=== PATIENT | male | born 2000 | race Hispanic/Latino ===

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

== ENCOUNTER 2019-04-02 12:38 | Day surgery (SDC) | payer SELFPAY ==
[~2019-04-02 12:38] MED LIST changes: +Dexamethasone 20 MG/5 ML VIAL ONE; -ISOVUE-370 76%-LOCM 1 ML ONE; +Lidocaine 1% PF 5 ML VIAL ONE; +Ondansetron PF 4 MG/2 ML Vial ONE; +PROPOFOL 200 MG/20 ML VIAL ONE; +Rocuronium Bromide 10 MG/ML (10ML VIAL) ONE; +Succinylcholine Chloride 20 MG/ML 10 ml SYRINGE FS ONE
[2019-04-02 13:30] LABS: #Lymphocytes 0.9 thou/uL (1.20-3.40); #Neutrophils 14.3 thou/uL (1.40-6.50); %Basophils 0.1 % (0.0-1.0); %Eosinophils 0.1 % (0.0-10.0); %Lymphocytes 5.5 % (28.0-48.0); %Monocytes 6.4 % (0.0-4.0); %Neutrophils 87.9 % (31.0-61.0); Hemoglobin 14.7 g/dL (14.0-18.0); Mean Corpuscular Volume 88.2 fL (78.0-98.0); Mean Platelet Volume 8.3 fL (7.4-10.4); Platelet Count 223 thou/uL (130-400); RBC Distribution Width 11.3 % (11.5-14.5); Red Blood Cell (RBC) Count 4.88 mill/uL (4.00-5.20); White Blood Cell (WBC) Count 16.3 thou/uL (4.8-10.8)
[2019-04-02 13:47] LABS: ALT (SGPT) 16 U/L (8-55); AST (SGOT) 16 U/L (10-45); Albumin 5.2 g/dL (3.5-5.0); Alkaline Phosphatase 95 U/L (50-130); Anion Gap 14 mmol/L (10-20); BUN (Urea Nitrogen) 15 mg/dL (8.4-21.0); Calc. Creatinine Clearance 0 mL/min (70-130); Calcium 10.4 mg/dL (7.8-10.44); Carbon Dioxide 24 mmol/L (22-29); Chloride 102 mmol/L (98-107); Estimated GFR-MDRD Greater than 90; Globulin 2.9 g/dL (2.4-3.5); Glucose 125 mg/dL (70-105); Lipase Less than 4 U/L (8-78); Potassium 3.6 mmol/L (3.5-5.1); Protein, Total 8.1 g/dL (6.0-8.3); Sodium 136 mmol/L (136-145)
--- NOTE | 2019-04-02 15:49 | CT ---
CT ABDOMEN AND PELVIS PERFORMED WITHOUT CONTRAST ENHANCEMENT: Date: 04/02/19 HISTORY: Abdominal pain, nausea and vomiting. FINDINGS: The lung bases are clear. The liver, spleen, pancreas, and gallbladder regions appear unremarkable, given the limitations of t he noncontrast study. Right and left adrenal glands, and right and left kidneys are normal in size. There is no significant periaortic or mesenteric adenopathy. CT of pelvis was performed without contrast enhancement. There is some moderate ileocolic chain lymph adenopathy and a couple of small appendicoliths are present, one near the base of the appendix. The a ppendix is distended with very minimal early periappendiceal inflammatory change. IMPRESSION: Findings that are suggestive of early appendicitis changes. POS: KIM
[2019-04-02] MEDS ORDERED: Ondansetron PF 4 MG/2 ML Vial ONE ×2 (15:51→15:52)
[2019-04-02] MEDS ORDERED: Ketorolac Tromethamine 30 MG/ML VIAL ONE (15:51)
[2019-04-02] MEDS ORDERED: Fentanyl 100 MCG/2 ML VIAL ONE ×3 (15:51→17:36)
[2019-04-02] MEDS ORDERED: Piperacillin/Tazobactam 4.5 GM VIAL ONE (15:52)
[2019-04-02] MEDS ORDERED: Bupivacaine 0.25% HCL 30 ML VIAL ONE (16:04)
[2019-04-02] MEDS ORDERED: Lidocaine 1% w/Epinephrine 1:100K 20 ML VIAL ONE (16:04)
--- NOTE | 2019-04-02 16:26 | HP ---
HISTORY: Mr. Harrell is a 18-year-old man, who presented to emergency department today. The patient is English-speaking only and interpretation was provided by his cousin at bedside. The patient reports insidious onset periumbilical abdominal pain, which started approximately at noon yesterday. Pain was described as sharp, occasionally crampy, rated at 7/10 at onset. The pain was associated with multiple episodes of nausea, but no emesis. The pain intensified after midnight and has settled in the right lower quadrant where it has persisted. Currently, he reports 8 to 9/10 right lower quadrant abdominal pain. He denies any fevers or chills. He denies any diarrhea. PAST MEDICAL HISTORY: Denies any previous medical problems. PAST SURGICAL HISTORY: Denies any previous surgeries. SOCIAL HISTORY: He is single, lives independently. He is employed in the construction business. He smokes marijuana occasionally and also admits to occasional intake of ethanol in moderate amounts. He denies any other illicit drug abuse or cigarette smoking. FAMILY HISTORY: Denies any family history of diabetes mellitus, hypertension, heart disease, or cancer. PREHOSPITALIZATION MEDICATIONS: None. ALLERGIES: THE PATIENT DENIES ANY KNOWN DRUG ALLERGIES. REVIEW OF SYSTEMS: Ten-point review of systems essentially unremarkable except as stated in past medical history and chief complaint. PHYSICAL EXAMINATION: GENERAL: Reveals a 18-year-old normally developed man, who is otherwise coherent, interactive, and appears stated age. The patient is alert and oriented x3, appears to be in moderate acute distress secondary to right lower quadrant abdominal pain. VITAL SIGNS: Today, include blood pressure 151/88, pulse is 100, respiratory rate is 16, and oxygen saturation is 100% on room air. HEENT: Reveals normocephalic and atraumatic. Pupils are equal, round, and reactive to light and accommodation. HEART: Reveals regular rate and rhythm. No murmurs or gallops auscultated. LUNGS: Clear to auscultation bilaterally. Breathing, regular and nonlabored. ABDOMEN: Soft with right lower quadrant tenderness at McBurney's. He has a positive Rovsing sign. Liver and spleen nonpalpable below the costal margin. NEUROLOGIC: Reveals no focal deficits present. LABORATORY FINDINGS: Today includes a CBC with 16,300 white blood cells, hemoglobin and hematocrit 14.7 and 43.1 respectively, and platelet count is 223,000. Metabolic profile; sodium 136, potassium is 3.6, chloride is 102, bicarb is 24, BUN 15, creatinine 0.73, and glucose 125. AST and ALT normal at 16 and 16 respectively. Serum lipase is less than 4. DIAGNOSTIC STUDIES: I have also reviewed the CT scan of the abdomen and pelvis, which is remarkable for dilated appendix with slight periappendiceal fat stranding. No pneumoperitoneum or significant free fluid is noted. IMPRESSION: Acute appendicitis. RECOMMENDATIONS AND PLAN: 1. Laparoscopic appendectomy. The above findings and plan discussed with the patient in the presence of his nurse as well as a family member, his cousin at bedside. 2. I have informed the patient of the risks and benefits of the proposed surgery to include, but not limited to bleeding, infection, injury to bowel or surrounding structures. 3. The patient indicates understanding information given. I have answered his questions. 4. The patient has granted consent for his admission and surgical intervention. Job ID: [id number]
[2019-04-02] MEDS ORDERED: SUGAMMADEX SODIUM 200 MG/2 ML VIAL ONE (17:19)
[2019-04-02] MEDS ORDERED: Meperidine HCl/PF 25 MG/ML VIAL ONE (17:46)
--- NOTE | 2019-04-02 22:52 | OP ---
DATE OF PROCEDURE: 04/02/2019 PREOPERATIVE DIAGNOSIS: Acute appendicitis. POSTOPERATIVE DIAGNOSIS: Acute appendicitis. OPERATION PERFORMED: Laparoscopic appendectomy. ANESTHESIA: General endotracheal. ESTIMATED BLOOD LOSS: 5 mL. FLUIDS GIVEN: 800 mL of crystalloids. COUNTS: Sponge and instrument counts were verified as correct x2. COMPLICATIONS: None apparent at the time of operation. INDICATIONS FOR OPERATION: This is a 18-year-old man, presented with insidious onset of periumbilical abdominal pain, which started yesterday noon and intensified and localized to the right lower quadrant over the last 18 hours. Clinical radiographic examination was consistent with acute appendicitis, for which the patient was brought to the operating room for appendectomy. Findings are consistent with suppurative, but nondilated appendix in the usual anatomic location. DESCRIPTION OF PROCEDURE: Informed consent was obtained from the patient who was brought to the operating room and placed in supine position. Following general anesthesia, abdomen was sterilely prepped and draped in usual fashion. The skin below the umbilicus was infiltrated with 0.25% Marcaine with epinephrine. A small curvilinear infraumbilical incision was made using 11 scalpel. Umbilical stalk grasped with Raaf and elevated. Veress needle was inserted through the incision and placed in peritoneal cavity through which the abdomen was insufflated with 3 L of CO2 gas. Intraabdominal pressure noted at 1 mmHg. Following abdominal insufflation, Veress needle was removed and a 5 mm trocar introduced using a Visiport under laparoscopy. Laparoscopy confirmed proper placement of the port, no injuries to underlying structures. Additional laparoscopy revealed the right lower quadrant partially obscured by omental adhesions. Under laparoscopy, two 5 mm suprapubic and left lower quadrant ports were placed after the overlying skin was infiltrated with 0.25% Marcaine with epinephrine and appropriate incision was made. The patient was placed in the Trendelenburg position, rotated to his left. I introduced a Prestige grasper through the left lower quadrant port using this to bluntly take down omental adhesions to expose suppurative appendix in the usual anatomic location. The appendix was grasped with the Endo Darius forceps introduced through the suprapubic port site grasping the appendix, which was elevated. I then used a LigaSure device to sterilely take down the mesoappendix down to the base with good hemostasis. The appendix itself was divided at the appendiceal-cecal junction between Endoloop. Appendix was delivered off the abdominal cavity using the EndoCatch. The distal ileum was run from proximal 2 feet down to the ileocecal junction. I did not find any Meckel diverticulum. Finding no other pathology, laparoscopy was terminated at this juncture. Operative site remained intact. No active bleeding present. The abdomen was desufflated and all ports and instruments were removed and accounted for. Skin incisions were closed using 4-0 Monocryl suture in subcuticular fashion. Dermabond was applied over incisional closure. The patient tolerated this operation without any apparent complication and was returned to recovery room in satisfactory condition. Job ID: [id number]
== END 2019-04-02 19:20 | disposition home or self-care (01) ==
LOC: ERS 12:38 → SDC/OP 16:18
PROVIDERS: ATTEND Surgery
PROC: 0DTJ4ZZ Resection of Appendix, Percutaneous Endoscopic Approach (ICD-10-PCS; principal; 2019-04-02)
DX: K35.80 Unspecified acute appendicitis (principal)
CPT/HCPCS: 36415; 74176; 80053; 83690; 85025; 88304; 96374; 96375; J0131; J1100; J1885; J2001; J2175; J2405; J2543; J2704; J3010; S0020